=== PATIENT | female | born 1990 | race African-American/Black ===

== ENCOUNTER 2018-12-15 11:52 | Emergency (ER) | payer SELFPAY ==
--- NOTE | 2018-12-15 12:06 | PDOC ---
History of Present Illness - General Chief Complaint: Toothache Stated Complaint: DENTAL ISSUE Time Seen by Provider: 12/15/18 12:03 History Source: Patient Exam Limitations: No Limitations - History of Present Illness Initial Comments: 12/15/18 12:03 28 YOF with h/o rheumatoid arthritis and right knee replacement who p/w left facial pain and swelling which she states is d/t a dental infection. She cracked a left upper tooth on 12/12 and noticed the swelling this morning. She notes that she was supposed to see a dentist to have dental work done, but because of her knee replacement she was supposed to have been on antibiotics before this could be done. She states the dentist will not see her until she can be placed on antibiotics. The knee replacement was performed in 2014 by her orthopedist in [place], whom she no longer sees. She denies f/c/n/v/d/c, drooling, difficulty swallowing or speaking, headache, vision change, neck pain , etc. Past History - Past Medical History Allergies/Adverse Reactions: Allergies Allergy/AdvReac Type Severity Reaction Status Date / Time No Known Drug Allergies Allergy Verified 12/15/18 11:55 Home Medications: Ambulatory Orders Amoxicillin/Potassium Clav [Augmentin 875-125 Tablet] 1 each PO BID #14 tablet 12/15/18 Asthma: Yes Thyroid Disease: Yes (GRAVES DISEASE) - Surgical History Abdominal Surgery: Yes (HERNIA REPAIR) - Suicide/Smoking/Psychosocial Hx Smoking Status: No Smoking History: Never smoked Number of Cigarettes Smoked Daily: 0 Hx Alcohol Use: No Drug/Substance Use Hx: No Substance Use Type: None Review of Systems - Review of Systems Able to Perform ROS?: Yes Comments:: 12/15/18 12:21 GEN: no fever, chills, malaise, generalized weakness, or weight change HEENT: dental pain/swelling, no ear pain, sore throat, vision change, or eye pain CV: no chest pain, palpitations, lightheadedness, syncope, or edema RESP: no cough, wheezing, or SOB GI: no abdominal pain, nausea, vomiting, diarrhea, constipation, or white/black/ bloody stool : no dysuria, hematuria, incontinence, retention, bleeding, or discharge MSK: no neck/back pain, muscle weakness/pain, or joint swelling/pain NEURO: no headache, seizure, vertigo, numbness, tingling, or focal weakness PSYCH: no substance use, no behavior change SKIN: no jaundice, no rash ROS otherwise negative except as noted in HPI *Physical Exam - Vital Signs Initial Vital Signs Temp Pulse Resp BP Pulse Ox 98.5 F 88 16 136/92 99 12/15/18 11:54 12/15/18 11:54 12/15/18 11:54 12/15/18 11:54 12/15/18 11:54 - Physical Exam Comments: 12/15/18 12:22 GENERAL: well-appearing, A/Ox4, no distress, answers questions appropriately HEENT: obvious right facial swelling (infraorbital not including the periorbital region), poor dentition especially left upper teeth, multiple decayed areas and fractures, small amount of gingival swelling and erythema with ttp, PERRLA, EOMI, moist mucous membranes, tolerating secretions, no neck swelling, no swelling to floor of mouth, there is a small amount of edema to buccal salivary duct on the left side. NECK/BACK: no midline ttp, no spinal stepoff or deformity, no hematoma, full ROM , neck supple CARDIOVASCULAR: regular rate/rhythm, normal S1S2, no MGR, strong peripheral pulses, capillary refill <2 seconds, extremities wwp, no edema LUNGS/RESPIRATORY: no respiratory distress, CTAB GI/ABDOMEN: symmetric [id number], normoactive BS, soft, no ttp, no midline pulsatile masses : no CVA tenderness EXTREMITIES: no muscle atrophy, no acute deformity, no edema SKIN: warm and dry, no pallor, no jaundice, no rash, no bruising, no skin breakdown, no cuts, no lesions NEUROLOGICAL: GCS 15, CN II-XII grossly intact, 5/5 strength proximally and distally, no facial droop Medical Decision Making - Medical Decision Making Pt p/w dental pain/swelling, has not been on abx, has knee hardware in place. Initial Vital Signs Temp Pulse Resp BP Pulse Ox 98.5 F 88 16 136/92 99 12/15/18 11:54 12/15/18 11:54 12/15/18 11:54 12/15/18 11:54 12/15/18 11:54 Exam: As noted in Physical Exam section. DDX IBNLT: dental infection, dental abscess, unlikely to be sialadenitis/ sialolithiasis, dental fracture, dental caries, gingivitis, very unlikely to be Paul angina or parotitis or other more serious etiology. W/U ordered: None TX ordered: Augmentin 875 mg first dose here in the ED. DISCHARGE Patient given Tylenol at her request here in the ED. On last reassessment, vitals are wnl, pain is reasonably controlled, and exam is benign. Workup is not concerning for emergency-level pathology at this time. This patient is appropriate for discharge with close outpatient follow up. Rx for remaining Augmentin is sent to her pharmacy. They are comfortable with this plan and will follow up with their primary care provider in 1-3 days. Specific return precautions are discussed and they will come back to the ER if necessary. *DC/Admit/Observation/Transfer Diagnosis at time of Disposition: Dental infection - Discharge Dispostion Disposition: HOME Condition at time of disposition: Stable Decision to Admit order: No - Prescriptions Prescriptions: Amoxicillin/Potassium Clav [Augmentin 875-125 Tablet] 1 each PO BID #14 tablet - Referrals Referrals: Luz Elena Macario MD [Primary Care Provider] - - Patient Instructions Printed Discharge Instructions: DI for Dental Pain Additional Instructions: You were seen in the ER for dental pain and swelling. We did an exam, gave you your first dose of antibiotics for dental infection, and sent the remaining prescription to your pharmacy. After our assessment, we do not believe you are having a medical emergency at this time, and we believe you are safe to go home. Please follow up with your dentist [facility] tomorrow. Call their clinic as soon as possible, tell them you were seen in the ER, and tell them you need an appointment. If you have any new or worsening symptoms, especially worsened dental pain or swelling, evidence of infection, inability to swallow, difficulty breathing, fever, chills, or other symptoms, please come back to the ER at any time (24 hours a day). If you are having severe or life threatening symptoms, or symptoms that make it unsafe to drive or have someone drive you, please call 911. - Post Discharge Activity
[2018-12-15 12:10] VITALS: BP 136/92; PULSE 88; TEMP 98.5; BMI 24.0
--- NOTE | 2018-12-15 12:30 | PDOC ---
Attending Attestation - Resident Resident Name: Jessi Santiago - ED Attending Attestation I have performed the following: I have examined & evaluated the patient, The case was reviewed & discussed with the resident, I agree w/resident's findings & plan, Exceptions are as noted - HPI HPI: 12/15/18 18:51 Reviewed Residents HPI - Physicial Exam PE: 12/15/18 18:51 Reviewed Residents PE - Medical Decision Making 12/15/18 18:51 28 years old not on any immunosuppressants for her rheumatoid arthritis presents with infected tooth and small amount of facial swelling no fever. Well -appearing no apparent distress vital signs stable We'll start patient on Augmentin she'll return to ED for any severe worsening symptoms otherwise she'll follow-up with her dentist in 2-3 days. 12/15/18 18:51
[2018-12-15] MEDS ORDERED: AMOX TR/POT CLAV 875MG/125MG TABLETS (FP) PO ONE (12:34)
[2018-12-15] MEDS ORDERED: AMOX TR/POT CLAV 875MG/125MG TABLETS (FP) ONE (12:48)
[2018-12-15] MEDS ORDERED: ACETAMINOPHEN 500 MG TABLET (FP) PO ONE (13:11)
[2018-12-15] MEDS ORDERED: ACETAMINOPHEN 500 MG TABLET (FP) ONE (13:19)
== END 2018-12-15 13:48 | disposition home or self-care (01) ==
LOC: FER 11:52
DX: K04.7 Periapical abscess without sinus (principal); E05.00 Thyrotoxicosis with diffuse goiter without thyrotoxic crisis or storm; J45.909 Unspecified asthma, uncomplicated; M06.9 Rheumatoid arthritis, unspecified; Z96.651 Presence of right artificial knee joint
CPT/HCPCS: 99282-25

== ENCOUNTER 2018-12-27 04:14 | Emergency (ER) | payer OTHER ==
--- NOTE | 2018-12-27 04:16 | PDOC ---
History of Present Illness - General Chief Complaint: Asthma Stated Complaint: ASTHMA Time Seen by Provider: 12/27/18 04:15 History Source: Patient Exam Limitations: No Limitations - History of Present Illness Initial Comments: 12/27/18 04:15 Ms Victoria is a 28 yo F with a h/o rheumatoid arthritis, asthma, Graves disease who presents to the ER with a complaint of shortness of breath/asthma exacerbation Pt was in her usual state of health until earlier this week (she estimates 4 or 5 days ago) she began to notice wheezing/shortness of breath No fevers or chills She notices a cough when she wakes up in the morning, no sputum She has noted wheezing which will not go away entirely She has used albuterol diluted with saline but this has not helped. Pt has neither been admitted no intubated for her asthma. She reports that the last time she used prednisone was some times ago and her triggers are typically this weather (humidity and pollen). Pt patient has run out of her medications due to a lapse in her health insurance PMH: Asthma, Graves Disease, Rheumatoid Arthritis (Controlled, no immunosuppressant medications) PSH: Hernia Repair, Meds: marijuanna ALL: NKDA Social: (+) marijuanna socially, no tobacco ROS: GENERAL/CONSTITUTIONAL: No: fever, chills HEAD, EYES, EARS, NOSE AND THROAT: No: ear pain, sore throat CARDIOVASCULAR: No: chest pain, lightheadedness, palpitations RESPIRATORY: Yes: cough, shortness of breath, wheezing No: hemoptysis, stridor. GASTROINTESTINAL: No: nausea, vomiting, diarrhea, abdominal pain GENITOURINARY: No: dysuria, hematuria, frequency, urgency, flank pain. MUSCULOSKELETAL: No: back pain, neck pain SKIN: No: lesions, pallor, rash or easy bruising. NEUROLOGIC: No: headache, vertigo, paresthesias, weakness PE: GENERAL: The patient is in no acute distress, speaking in clear and complete sentences. HEAD: Normal EYES: PERRLA, EOMI, sclera anicteric, conjunctiva clear. ENT: Ears normal, nares patent, oropharynx clear without exudates. Moist mucous membranes. NECK: Normal range of motion, supple LUNGS: Breath sounds equal, clear to auscultation bilaterally. (+) inspiratory and expiratory wheezing HEART:Regular rate and rhythm, normal S1 and S2 without murmur, rub or gallop. ABDOMEN: Soft, nontender, normoactive bowel sounds. EXTREMITIES: Normal range of motion, no edema. NEUROLOGICAL: Cranial nerves II through XII grossly intact. Normal speech. No focal neurological deficits. MUSCULOSKELETAL: no tenderness SKIN: Warm, Dry, normal turgor, no rashes or lesions noted. 12/27/18 04:17 12/27/18 04:24 12/27/18 05:16 12/27/18 05:17 12/27/18 05:18 Past History - Past Medical History Allergies/Adverse Reactions: Allergies Allergy/AdvReac Type Severity Reaction Status Date / Time No Known Drug Allergies Allergy Verified 12/15/18 11:55 Home Medications: Ambulatory Orders Albuterol 0.083% Nebulizer Lillie [Ventolin 0.083% Nebulizer Soln -] 1 neb NEB Q6H #30 vial 12/27/18 Albuterol Sulfate Inhaler - [Ventolin HFA Inhaler -] 1 - 2 inh PO QID PRN #1 inhaler 12/27/18 predniSONE [Deltasone -] 60 mg PO DAILY #12 tablet 12/27/18 Asthma: Yes COPD: No Thyroid Disease: Yes (GRAVES DISEASE) - Surgical History Abdominal Surgery: Yes (HERNIA REPAIR) - Suicide/Smoking/Psychosocial Hx Smoking Status: No Smoking History: Never smoked Number of Cigarettes Smoked Daily: 0 Hx Alcohol Use: No Drug/Substance Use Hx: No Substance Use Type: None Medical Decision Making - Medical Decision Making 12/27/18 04:36 Ms Victoria presents due to Asthma exacerbation DD: Asthma exacerbation, Bronchitis, upper airway obstruction unlikely (no stridor) 12/27/18 05:00 One albuterol given pt feels much better Wheezing 80% improved Pt offered another neb treatment Of note, pt requested HIV testing This was sent to [facility] for her 12/27/18 05:10 Pt wheezing improved greatly Will plan to discharge on BAgonists and Prednisone Pt asked to contact PMD to review case with them *DC/Admit/Observation/Transfer Diagnosis at time of Disposition: Asthma exacerbation Qualifiers: Asthma severity: moderate Asthma persistence: persistent Qualified Code(s): J45.41 - Moderate persistent asthma with (acute) exacerbation - Discharge Dispostion Disposition: HOME Condition at time of disposition: Stable Decision to Admit order: No - Prescriptions Prescriptions: Albuterol 0.083% Nebulizer Lillie [Ventolin 0.083% Nebulizer Soln -] 1 neb NEB Q6H #30 vial Albuterol Sulfate Inhaler - [Ventolin HFA Inhaler -] 1 - 2 inh PO QID PRN #1 inhaler PRN Reason: Wheezing predniSONE [Deltasone -] 60 mg PO DAILY #12 tablet - Referrals Schedule a call back: HIV testing - Patient Instructions Printed Discharge Instructions: Asthma -- Adult Additional Instructions: Ms Victoria Thank you for to the ER today You were seen in the ER for your asthma flair I would like to to take medications as prescribed - the Albuterol and prednisone will help your lungs be less reactive Consider obtaining your medications using [employer] (discounted medications) Please monitor yourself for fevers or chills, productive cough (as this should prompt you to return to the ER for an xray to look for pneumonia) Please be sure to follow up with your primary care physician. When you do, ask your doctor about an asthma action plan, which is a paper that tells you how to treat and control wheezing. See your doctor for a recheck as soon as possible. Home Care: 1. Fluids and fever measures. 2. No smoking!! This is very important. Smokers must shower and change clothes before entering the house. Any cigarette smoke or odor is harmful to wheezing lungs. Call your doctor or return to the emergency department if worse or: 1. Wheezing is not better. 2. Breathing is difficult or too fast. 3. There are retractions (the skin between or under the ribs sucks in when breathing). 4. Chest pain 5. Drowsy or sleepy. 6. Pale color or blue/weiss color is seen in the lips or fingernails (call 911). - Post Discharge Activity Forms/Work/School Notes: Back to Work
[2018-12-27] MEDS ORDERED: ALBUTEROL SO4 0.083% IH SOL 2.5 MG/3 ML VIAL.NEB. NEB ONE ×4 (04:24→04:51)
[2018-12-27] MEDS ORDERED: predniSONE 20 MG TABLET (UD) PO ONE (04:24)
[2018-12-27] MEDS ORDERED: predniSONE 20 MG TABLET (UD) ONE (04:26)
[2018-12-27 04:47] VITALS: BP 131/88; PULSE 80; TEMP 97.1; BMI 24.9
== END 2018-12-27 05:20 | disposition home or self-care (01) ==
LOC: FER 04:14
PROC: 3E0F7GC Introduction of Other Therapeutic Substance into Respiratory Tract, Via Natural or Artificial Opening (ICD-10-PCS; principal; 2018-12-27)
DX: J45.41 Moderate persistent asthma with (acute) exacerbation (principal); E05.00 Thyrotoxicosis with diffuse goiter without thyrotoxic crisis or storm; Z11.4 Encounter for screening for human immunodeficiency virus [HIV]
CPT/HCPCS: 36415; 87389; 94640; 99281-25